=== PATIENT | female | born 1970 | race Caucasian/White ===

== ENCOUNTER 2016-12-07 11:42 | Day surgery (SDC) | payer OTHER ==
[~2016-12-07] VITALS: Ht 172.7 cm; Wt 81.0 kg
[~2016-12-07 11:42] MED LIST: BUPR100T15 PO; CITA20TA11 PO; FLUT16SP NS; IBUP200C8 PO; Lactated Ringer's 1,000 ML IV ONE; PANT40TA3 PO; RANI150T11 PO
[2016-12-07] MEDS ORDERED: Propofol 10,000 mCg/mL 20 mL Inj ONE (11:43)
[2016-12-07 12:10] VITALS: BP 111/69; PULSE 68; RESP 14; O2SAT 98
[2016-12-07] MEDS ORDERED: Lactated Ringer's 1,000 ML IV SCH (13:29)
[2016-12-07] MEDS ORDERED: MetoCLOpramide 5 mg/mL 2 mL Inj IVPUSH PRN (13:30)
[2016-12-07] MEDS ORDERED: Ondansetron 2 mg/mL 2 mL Inj IVPUSH PRN (13:30)
--- NOTE | 2016-12-07 13:30 | PCM.HPANE ---
Patient Data Date of Service: Dec 07, 2016 Surgeon Admitting Provider: Attending Provider:Rajeev Kenney MD Primary Care Physician:Amador Casas DO Other Provider:Layne Yanez Anesthesia Reason for Visit GERD Ht/WT & BMI Height (Feet): 5 Height (Inches): 8 Weight (Kilograms): 81 Body Mass Index 27.00 Allergies Coded Allergies: No Known Allergies (Verified Allergy, Unknown, 12/06/16) Past Anesthesia History Anesthesia History: Denies:: Abnormal Airway, Anesthesia Reactions, Difficult Intubation, Fam Anesthesia Reaction, Fam Malignant Hypertherm, Malignant Hyperthermia Diabetes History Hx Diabetes?: No MRSA MRSA: No Medications Hypertension Medication: No Home Meds Incl Beta Ryan: No Reported Medications Pantoprazole DR 40 Mg Tablet.dr40 Mg PO DAILY Ref 0 12/06/16 Fluticasone Propionate (Fluticasone Propionate Nasal)16 Gm Metter.susp2 Metter NS BID #16 GM Ref 0 12/06/16 Ibuprofen (Advil Migraine)200 Mg [id number] Mg PO q6hr 12/06/16 Discontinued Reported Medications Ranitidine (Zantac)150 Mg Fradho782 Mg PO BID 12/06/16 Citalopram 20 Mg Fedioq59 Mg PO DAILY Ref 0 12/06/16 Bupropion 100 Mg Ngnnfr509 Mg PO DAILY Ref 0 12/06/[address] (Protonix)40 Mg Jpfobk70 Mg PO BID Ref 0 09/27/16 Fluticasone Propionate (Flonase Allergy Relief)50 Mcg/Actuation Metter.susp9.9 Ml NS 09/27/16 Discontinued Scripts Naproxen 500 Mg Wrk509 Mg PO BID PRN For Pain #14 TABLET Ref 0 Prov:Denton Mcwilliams MD 09/27/16 Cyclobenzaprine 10 Mg Ebrsie53 Mg PO TID PRN Spasm #15 TABLET Prov:Denton Mcwilliams MD 09/27/16 History HEENT History: Denies:: Abnormal Airway Difficult Intubation Dysphagia Hearing Problem Denture Type: Full- Upper Hx of Heart Problems?: No Cardiovascular History: Denies:: Congestive Heart Failure Hypertension Hx of Respiratory Problem?: No Respiratory History: Denies:: Cough Hemoptysis Pneumonia Tuberculosis Hx Neurologic Problems?: No Neurological History: Denies:: CVA Hx of GI Problems?: Yes Gastrointestinal History: Positive for:: Gall Bladder Disease Gastroesphageal Reflux Denies:: Diverticulitis Hiatal Hernia Liver Disease Rectal Bleeding Hx of Problems?: No Female Hx: Denies:: Currently (TUBAL LIGATION) Hx Musculoskeletal Problems?: No Musculoskeletal History: Denies:: Fibromyalgia Joint Replacement Psycho Social History: Positive for:: Anxiety (SITUATIONAL, LOSS OF SON, TRIALING NO MEDS) Hx Depression (SITUATIONAL, LOSS OF SON, TRIALING NO MEDS) Hx Surgeries?: Yes (TUBAL LIGATION, GALLBLADDER, C-SECTIONX2) Hx Any Other Health Problems?: Yes Hx Diabetes: No Hx Alcohol Use: NoHx Substance Use: Yes Smoking Status: Current Every Day Smoker Stop/Bang Treated for Sleep Apnea?: No Do You Have a CPAP Machine?: No S-Snoring: Do You Snore Loudly: No T-Tired: feel tired, fatigued: Yes O-Obsered: Observed not breath: No P-Blood Pressure: treated: No B- Body Mass Index > 35 kg/m2: No A- Age over 50: No N- Neck Large Circumference: No G- Gender Male: No ALLIE Total Score: 1 Risk Assessment Category Category 1A: Patient has history of documented sleep apnea, and HAS NOT received any narcotic, sedative or anesthesia administration during this stay. Category 1B: Patient has history of documented sleep apnea, and HAS received any narcotic , sedative or anesthesia administration during this stay Category 2: Patient has SUSPECTED Obstructive Sleep Apnea, and HAS received any narcotic , sedative or anesthesia administration during this stay. Category 3: Patient has SUSPECTED Obstructive Sleep Apnea and HAS NOT received narcotic, sedative or anesthesia administration during this stay. Category 4: Outpatient in Procedural Areas with known sleep apnea or who screen positive for High Risk via the STOP/BANG questionnaire. Exam Exam Vital Signs Vital Signs Date Time Temp Pulse Resp B/P Pulse Ox O2 Delivery O2 Flow Rate FiO2 12/07/16 12:10 36.3 68 14 111/69 98 Room Air General Appearance: Alert, Oriented X3, Cooperative HEENT/AIRWAY: MP 2, Neck Movement, Mouth Opening Lungs: Clear to Auscultation, Normal Air Movement Heart: Regular Rate/Rhythm, Normal S1, Normal S2 Meds/Labs/Diagnostics Admission Meds Current Medications Lactated Ringer's (Lr) 1,000 ml @ 10 mls/hr Q24H ONCE IV Last administered on 12/07/16t 13:16; Start 12/07/16 at 06:00; Stop 12/08/16 at 05:59 Lidocaine HCl (Xylocaine Viscous 2% Soln 15mL) 15 ml PRN ONCE PO Last administered on 12/07/16t 13:16; Start 12/06/16 at 18:30; Stop 12/06/16 at 19:25 ; Status DC Plan Impression Patient chart reviewed, patient interviewed and anesthestic plan with risks, benefits, and alternatives discussed, and informed consent obtained. NPO Status: > 8 hours ASA Physical Status: ASA2 Plus Emergency Anesthetic Plan: MAC Bene/Risks/Altern/Consents: Yes HP Complete Prior to Induction: Yes Doroteo Castillo MD Dec 07, 2016 13:29
--- NOTE | 2016-12-07 13:30 | PCM.ANEP1 ---
Post Anesthesia Phase 1 PACU Phase 1 Assessment Date of Service: Dec 07, 2016 Vital Signs Vital Signs Date Time Temp Pulse Resp B/P Pulse Ox O2 Delivery O2 Flow Rate FiO2 12/07/16 12:10 36.3 68 14 111/69 98 Room Air Anesthetic Administered: MAC Level of Alertness: Awake, talking PINTO's with Equal Strength: Yes Pain: No Nausea or Vomiting: No Oxygen Delivery: Room Air Lungs: Normal Air Movement Doroteo Castillo MD Dec 07, 2016 13:30
[2016-12-07 13:45] VITALS: BP 99/60; PULSE 77; RESP 16; O2SAT 96
--- NOTE | 2016-12-07 13:55 | PCM.ANEP1 ---
Post Anesthesia Phase 1 PACU Phase 1 Assessment Date of Service: Dec 07, 2016 Vital Signs Vital Signs Date Time Temp Pulse Resp B/P Pulse Ox O2 Delivery O2 Flow Rate FiO2 12/07/16 13:30 Room Air 12/07/16 12:10 36.3 68 14 111/69 98 Room Air Anesthetic Administered: MAC Level of Alertness: Awake, talking PINTO's with Equal Strength: Yes Pain: No Nausea or Vomiting: No Oxygen Delivery: Room Air Lungs: Normal Air Movement Doroteo Castillo MD Dec 07, 2016 13:55
[2016-12-07 14:02] VITALS: BP 99/60; PULSE 63; RESP 16; O2SAT 100
--- NOTE | 2016-12-07 14:24 | PCM.ANEP2 ---
Post Anesthesia Evaluation ASA/CMS Post Anesthesia VS in Patient's Normal Range?: Yes Resp Stable; Airway Patent?: Yes CV Function & Hydration Stable: Yes Mental Status Recovered?: Yes Pain control Satisfactory?: Yes N/V Control Satisfactory?: Yes Doroteo Castillo MD Dec 07, 2016 14:24
--- NOTE | 2016-12-07 14:54 | ENDO ---
[address] [address] ENDOSCOPY PROCEDURE PATIENT: February : 1970 MR#: [id number] ADMIT: 12/07/2016 JOB ID: [id number] DATE OF SERVICE: 12/07/2016 TYPE OF OPERATION: Esophagogastroduodenoscopy with biopsy. PREOPERATIVE DIAGNOSIS(ES): Gastroesophageal reflux disease. POSTOPERATIVE DIAGNOSIS(ES): Mild nonerosive gastritis. ANESTHESIA: Monitored anesthesia care. COMPLICATIONS: None. BLOOD LOSS: Minimal. DESCRIPTION OF PROCEDURE: After risks and benefits explained to the patient, informed consent was obtained. After anesthesia administered, upper endoscope was then inserted into the mouth, intubated into the esophagus, stomach, second portion of duodenum. Mucosa carefully examined. After procedure was done, the scope withdrawn and procedure terminated. FINDINGS: Upon inspection of the esophagus, esophagus was normal without masses, ulcers, or lesions. Z-line located 40 cm from the incisors. Upon entering the stomach, there was mild nonerosive gastritis that was seen. No masses, ulcers, or lesions were seen. Retroflexion was normal. Duodenal bulb, first and second portions normal. Biopsies taken of antrum, body and distal esophagus. IMPRESSIONS: Mild nonerosive gastritis. RECOMMENDATIONS: Await pathology results. Follow up in GI clinic as needed.
--- NOTE | 2016-12-09 15:22 | PATH ---
SURGICAL PATHOLOGY Attending Physician:Rajeev Kenney MD CASE STATUS: Signed Out PATIENT NAME: , February. PID: [id number] : 1970 DATE COLLECTED:12/07/2016 00:00 SPECIMEN: 1: Esophagus, Biopsy 2: Stomach, Antrum, Biopsy 3: Gastric, Biopsy CLINICAL HISTORY: 1: DISTAL ESOPHAGUS BIOPSY 2: ANTRUM BIOPSY 3: GASTRIC BODY BIOPSY FINAL DIAGNOSIS: 1. Distal Esophagus Biopsy: Squamocolumnar mucosa with mild inflammatory changes consistent with reflux. Negative for intestinal metaplasia. Negative for dysplasia and malignancy. 2. Gastric Antrum Biopsy: Gastric antral mucosa with no diagnostic alterations. Negative for Helicobacter organisms. Negative for intestinal metaplasia. Negative for dysplasia and malignancy. 3. Gastric Body Biopsy: Gastric body mucosa with diagnostic alterations. Negative for Helicobacter organisms. Negative for intestinal metaplasia. Negative for dysplasia and malignancy. ICD10 K21.9 GROSS DESCRIPTION: The specimen is received in three formalin filled containers labeled with the patient's name. 1). The specimen is sublabeled "distal esophagus" and consists of 3 portions of tissue which aggregate to 0.3 x 0.3 x 0.2 CM. The specimen is entirely submitted in cassette 1A. 2). The specimen is sublabeled "antrum" and consists of 2 portions of tissue which aggregate to 0.4 x 0.3 x 0.2 CM. The specimen is entirely submitted in cassette 2A. 3). The specimen is sublabeled "gastric body" and consists of 3 portions of tissue which aggregate to 0.4 x 0.3 x 0.2 CM. The specimen is entirely submitted in cassette 3A. 12/08/2016 [facility] MICRO DESCRIPTION: Please see diagnosis. ICD-9 CODES: CPT CODES: 1: 21281 2: 80466 3: 63011 Electronically Signed Out Fouzia Butts MD [facility] [address], [place] [address] Technical component performed at [facility], [facility] [address], [place], [address]
== END 2016-12-07 23:59 | disposition home or self-care (01) ==
LOC: END 11:42
PROVIDERS: ATTEND Internal Medicine Gastroenterology
DX: K29.60 Other gastritis without bleeding (principal); K21.9 Gastro-esophageal reflux disease without esophagitis; F32.9 Major depressive disorder, single episode, unspecified; F41.9 Anxiety disorder, unspecified; F17.210 Nicotine dependence, cigarettes, uncomplicated; F43.29 Adjustment disorder with other symptoms; Z87.898 Personal history of other specified conditions
CPT/HCPCS: 43239; 88305; J7120

== ENCOUNTER 2016-12-25 15:37 | Emergency (ER) | payer OTHER ==
[~2016-12-25] VITALS: Ht 172.7 cm; Wt 81.8 kg
[~2016-12-25 15:37] MED LIST changes: -BUPR100T15 PO; -CITA20TA11 PO; -Lactated Ringer's 1,000 ML IV ONE; -RANI150T11 PO
[2016-12-25 15:49] VITALS: BP 123/82; PULSE 67; RESP 18; O2SAT 98
--- NOTE | 2016-12-25 17:57 | ED.REPORT ---
HPI-URI / Cough / Cold Date of Service Dec 25, 2016 ED Provider: Gt Boothe PA-C Otherwise healthy 46-year-old female with a two-week history of cough. She describes her cough is "hollow "a nonproductive. Associated with laryngitis, eye pressure, rhinorrhea, congestion, pain with coughing, diarrhea and nausea. Denies vomiting, fever, chest pain, palpitations, abdominal pain, ear symptoms, urinary symptoms. She does report that she has intermittent numbness on the right side of her body which is a condition she is being followed for at the residency clinic and is at baseline. Admits to smoking a few cigarettes a day. Nursing Notes Stated Complaint: SOB/COUGH/HEAD PAIN Chief Complaint: General Complaint Nursing Notes Reviewed: Yes Allergies: Coded Allergies: No Known Allergies (Verified Allergy, Unknown, 12/06/16) Scheduled Dextromethorphan Hb/Doxylamine (Robitussin Nighttime Cough Dm) 118 Ml Liquid 118 ML PO HS Fluticasone Propionate (Fluticasone Propionate Nasal) 16 Gm Latimer.susp 2 SPRAY NS BID Ibuprofen (Advil Migraine) 200 Mg Capsule 200 MG PO q6hr Pantoprazole DR (Pantoprazole DR) 40 Mg Tablet.dr 40 MG PO DAILY Scheduled PRN Benzonatate (Tessalon Perle) 100 Mg Capsule 100 MG PO TID PRN PRN For Cough General Time Seen by MD: 17:18 Chief Complaint Cough, non-productive Past Medical History Past Medical History Migraines Reports: GERD Smoking History Current Every Day Smoker Ambulatory Status Independent Review of Systems General: Denies fever, chills, malaise. HEENT: Admits congestion, headache, sore throat. Respiratory: Admits dyspnea, cough, shortness of breath, wheezing. Cardiovascular: Denies chest pain, palpitations. Gastrointestinal: Admits diarrhea. Denies vomiting, abdominal pain. Genitourinary: Denies frequency, urgency, dysuria, hematuria. Otherwise as noted in HPI. Physical Exam General: Well appearing, well developed, well nourished, no acute distress. Head: Atraumatic, normocephalic. No mastoid tenderness. Eyes: No scleral icterus or injection. No discharge. PERRL. Vision grossly intact. Ears: Pinna and tragus nontender with manipulation. External auditory canal patent, atraumatic and without discharge. Tympanic membrane galindo, shiny and translucent without fluid, bulging, retraction or perforation. Hearing grossly intact. Nose: Symmetrical, nares patent without discharge. No frontal or maxillary sinus tenderness. Mouth/pharynx: normal dentition, mucus membranes moist. Tonsils 2+ and symmetrical, uvula midline. Pharynx injected, no cobblestoning or discharge. Voice hoarse Neck: No tenderness or lymphadenopathy. Trachea midline. Respiratory: Clinically evident cough, dry. Regular rate and rhythm. Breath sounds present, clear to auscultation and equal bilaterally. No respiratory distress. No increased work of breathing, speaks in complete sentences. Cardiovascular: Regular rate and rhythm, without murmur, gallop or rub. No pedal edema. Gastrointestinal: Abdomen flat and non-tender without guarding or rebound. Bowel sounds normoactive. Skin: Warm and dry. Neurological: Grossly nonfocal. Psychological: Alert and oriented. Speech appropriate, linear and logical. Behavior appropriate. Initial Vital Signs Vital Signs (First) Date Time Temp Pulse Resp B/P Pulse Ox O2 Delivery O2 Flow Rate FiO2 12/25/16 15:49 36.8 67 18 123/82 98 Room Air Initial VS: Reviewed, Vital signs normal Re-Eval/Medical Decision Med Decision/Clinical Course Otherwise healthy 46-year-old female with a two-week history of cough. Physical examination is benign with clear lung sounds, good oxygen saturation, afebrile. No nasal discharge or sinus tenderness. No tonsillar exudates. At this point I feel pneumonia, sinusitis, strep throat or a mass is unlikely. I think this is a viral upper respiratory infection. Provided instructions for [id number] analgesia and a prescription for Tessalon Perle. Advise primary care follow-up and provided return precautions. Patient understands the plan and is comfortable with discharge. Discharge & Departure Impression: Primary Impression: Upper respiratory infection URI type: unspecified URI Qualified Code: J06.9 - Acute upper respiratory infection, unspecified Disposition: Home Discharge Condition All VS Reviewed: Yes Condition: Stable Patient Instructions: Upper Respiratory Infection (ED) Additional Instructions: History and physical are reassuring that this is unlikely to be a condition such as pneumonia or strep throat that requires antibiotic treatment. I believe that you have a viral upper respiratory infection. Rest, drink small amounts of fluids throughout the day, and eat small amounts of food as tolerated. The treatment is largely symptomatic: I typically recommend doxylamine/ dextromethorphan (brand name: Robitussin Extra Strength Nighttime Cough DM) for use at night, which will help you sleep and reduce cough. If your pharmacy does not have this, ask your pharmacist to recommend an alternative. I will write a prescription. Pain and fever is best treated with 400 mg of ibuprofen (Advil, Motrin) every 6 hours, or 1000 mg of acetaminophen (Tylenol) every 6 hours. These drugs can be taken at the same time for more severe pain. Pseudoephedrine (Sudafed) taken in the morning will help relieve nasal congestion. In many pharmacies this is kept behind the counter, so ask the pharmacist. Cepacol lozenges are very helpful for sore throat. I will prescribe Tessalon Perles to help with the cough during the day. Follow-up with your primary care provider if your symptoms have not significantly improved in a week. Remember that sometimes a cough can take up to a month to completely resolve. Return to the emergency department for new or worsening symptoms including chest pain, shortness of breath, difficulty breathing or speaking. Referrals: Amador Casas DO (PCP) EDSupervising Provider for APC: Ezio Weston MD copies to: Amador Casas Seth PA-C Dec 25, 2016 17:57
[2016-12-25] MEDS ORDERED: BENZ-12 PO (18:07)
[2016-12-25] MEDS ORDERED: DEXT237L PO (18:07)
[2016-12-25 18:11] VITALS: PULSE 69; O2SAT 97
[2016-12-25 18:17] VITALS: PULSE 69; O2SAT 97
== END 2016-12-25 18:17 | disposition home or self-care (01) ==
LOC: SED 15:37
DX: J06.9 Acute upper respiratory infection, unspecified (principal); K21.9 Gastro-esophageal reflux disease without esophagitis; F17.200 Nicotine dependence, unspecified, uncomplicated